=== PATIENT | female | born 1955 | race Caucasian/White ===

== ENCOUNTER 2022-05-13 07:20 | Day surgery (SDC) | payer OTHER ==
[2022-05-11 11:16] LABS: Absolute Lymphocytes (CBC) 1.6 K/uL (0.7-4.9); Hematocrit 44.2 % (36.0-45.0); Lymphocytes % 21.5 % (15.3-44.8); MCV 84.2 fL (80-100); MPV 6.9 fL (7.6-11.3); RBC Red Blood Cell Count 5.25 M/uL (3.86-4.86)
--- NOTE | 2022-05-11 11:28 | RAD REPORT ---
EXAM DESCRIPTION: RAD - Chest Pa And Lat (2 Views) - 05/11/2022 11:11 am CLINICAL HISTORY: Pre op pending cholecystectomy COMPARISON: No comparisons FINDINGS: Lines: None. Lungs: No evidence of edema or pneumonia. Pleural: No significant pleural effusions or pneumothorax. Cardiac: The heart size is within normal limits. Bones: No acute fractures. Other: IMPRESSION: No acute cardiopulmonary disease.
[2022-05-11 11:30] LABS: SARS-CoV-2 Antigen Rapid Res Negative (Negative)
[2022-05-11 11:32] LABS: Potassium 3.9 mmol/L (3.5-5.1)
--- NOTE | 2022-05-12 07:55 | EKG ---
Test Date: 2022-05-11 Test Time: 10:52:09 Honing Machine Operator Tool: CHAIM MEASUREMENT RESULTS: Intervals: Rate: 74 GA: 158 QRSD: 78 QT: 388 QTc: 430 [place]: P: 41 GA: 158 QRS: 15 T: 18 INTERPRETIVE STATEMENTS: Normal sinus rhythm Normal ECG No previous ECG available for comparison Electronically Signed On 05-12-22 07:52:42 CDT by Deon Wiley
[2022-05-13] MEDS ORDERED: Ringers Lactate 1,000 ML IV ONE (07:47)
[2022-05-13] MEDS ORDERED: CEFOXITIN SODIUM 1 GM/VIAL ONE (07:47)
[2022-05-13] MEDS ORDERED: MIDAZOLAM HCL 2 MG/2 ML INJ ONE (08:23)
[2022-05-13] MEDS ORDERED: propofoL 200 MG/20 ML VIAL IV ONE (08:23)
[2022-05-13] MEDS ORDERED: FENTANYL CITR 250 MCG/5 ML ONE (08:23)
[2022-05-13] MEDS ORDERED: ROCURONIUM 50 MG/5 ML VIAL IV ONE (08:23)
[2022-05-13] MEDS ORDERED: GLYCOPYRROLATE 0.2 MG/ML SYR ONE (08:24)
[2022-05-13] MEDS ORDERED: ONDANSETRON 4 MG/2 ML VIAL ONE (08:25)
[2022-05-13] MEDS ORDERED: NEOSTIGMINE 1 MG/ML -10 ML VIAL ONE (08:26)
[2022-05-13] MEDS ORDERED: LIDOCAINE 1% MPF 5 ML VIAL ONE (08:27)
[2022-05-13] MEDS ORDERED: ACETAMINOPHEN 500 MG TAB ONE (08:28)
[2022-05-13] MEDS ORDERED: BUPIVACAINE 0.25% PF 10 ML VIAL ONE (08:46)
[2022-05-13] MEDS ORDERED: EPHEDRINE SULF 50 MG/ML VIAL ONE (09:03)
[2022-05-13] MEDS ORDERED: dexAMETHasone 10 MG/ML VIAL ONE (09:09)
--- NOTE | 2022-05-13 10:17 | P.OP ---
Preoperative diagnosis: Chronic Cholecystitis with Cholelithiasis Postoperative diagnosis: Chronic Cholecystitis with Cholelithiasis Primary procedure: Laparoscopic Cholecystectomy with ICG Cholangiography Anesthesia: GETA + Local Estimated blood loss: < 10cc Specimen: Gallbladder Findings: Cholecystitis, umbilical hernia Complications: None Transferred to: Recovery Room Condition: Good
[2022-05-13 11:36] VITALS: BP 119/65; TEMP 97; O2SAT 99
[2022-05-13] MEDS ORDERED: HYDROCODONE/APAP 5/325 MG TAB ONE (12:24)
--- NOTE | 2022-05-13 21:47 | OP ---
Date of Procedure: 05/13/2022 Surgeon: Rk Perez MD, Preoperative Diagnoses: Chronic cholecystitis and cholelithiasis. Postoperative Diagnoses: Chronic cholecystitis and cholelithiasis. Procedures Performed: Laparoscopic cholecystectomy with ICG cholangiography. Anesthesia: General endotracheal plus local with 0.25% Marcaine. Estimated Blood Loss: Less than 10 cc. Specimen: Gallbladder. Findings: 1.Chronic cholecystitis with significant inflammatory changes. 2.Gallbladder full of stones, unable to be decompressed. 3.Stone impacted in neck of gallbladder. 4.Short cystic duct. 5.Umbilical hernia. 6.Nodular appearance of the liver consistent with possible early hepatitis/cirrhosis. Complications: None. The patient was transferred to recovery room in good condition. Procedure In Detail: After informed was obtained, the patient was brought to the operating room and prepped and draped in the usual sterile fashion. After adequate anesthesia was achieved, the supraum bilical area was anesthetized with 0.25% Marcaine, sharply incised, and 5 mm trocar was placed under direct visualization without any complication. Insufflation was obtained to 15 mmHg at this time. T here was no injury to vital structures upon entry into the abdomen. The patient was noted to have si gnificant intraabdominal adiposity with significant scar tissue anterior to the gallbladder, complete ly encasing the gallbladder and omentum. Three additional trocars were placed; 1 in the epigastrium, 1 in the right upper quadrant, and 1 in the right mid abdomen. All these were 5 mm trocars placed u nder direct visualization without any complication. The umbilical trocar was then upsized to a 12 mm under direct visualization without any complication. The patient was positioned in head up, right-s paul up position. Ratcheted grasper was used to grasp the patient's gallbladder. It was difficult to grasp at this point. A decompression needle was brought in and attempted to suction out the gallbla dder. However, due to the significant stone burden and viscosity of the effluent, it is very difficu lt to decompress the gallbladder and get any significant amount of reduction. As such the gallbladde r remains thick, edematous, and difficult to manage throughout the procedure. The grasper was able t o grasp the fundus of the gallbladder and place it towards the patient's right shoulder. Dissection continued down to remove the omentum and inflammatory rind off the anterior surface of the gallbladde r using a combination of blunt dissection and electrocautery down to expose the fundus of the gallbla dder where a stone was noted to be firmly impacted. Multiple attempts were made to remove the stone out of the neck of the gallbladder, which were unsuccessful. At this point, ICG cholangiography help ed to confirm the anatomy of the cystic common duct junction. The cystic duct was noted to be quite short, however, it could be visualized and a window was created. Two structures were identified ente ring the gallbladder. These were identified as the cystic duct and cystic artery. These were both d oubly clipped with titanium clips. Additional small feeding vessel side branch, off the cystic arter y was noted feeding the posterior portion of the gallbladder. This was also clipped with an addition al clip at this point. These structures were then ligated, after critical view of safety was obtaine d and ICG cholangiography confirmed the anatomy. At this point, the gallbladder was removed from the hepatic fossa without evidence of complication, placed in Endo Catch bag, removed through the umbili vickie trocar, and sent off for pathologic examination. The patient had an umbilical hernia, which was appreciated upon entry into the abdomen. This was somewhat dilated by the trocar placement and as jessica ch I irrigated the abdomen copiously at this point, suctioned out completely dry, and clips were foun d to be in good anatomic position. No hemostatic measures were required. At the end of procedure, n o leakage of bile. The area was copiously irrigated multiple times, suctioned out completely clear. The patient was positioned back in neutral position. Remaining effluent was suctioned out. The umb ilical trocar site was closed using multiple #1 Vicryl sutures in an interrupted fashion using a Monica barrettCharmaine suture passer with good opposition and approximation of the tissues reapproximating the u mbilical hernia as well with a primary closure. At this point, the abdomen was then completely desuf flated under direct visualization without evidence of complication. Remaining trocars were removed. All skin incisions were copiously irrigated and closed with a 4-0 Monocryl fashion. Dermabond was p laced over top. The patient tolerated procedure without evidence of any complication and transferred to PACU in good condition. All counts were correct at the end of the case. TK/MODL Voice ID: [id number] Report ID: [id number]
== END 2022-05-13 13:15 | disposition home or self-care (01) ==
LOC: OR 07:20
PROVIDERS: ATTEND Surgery
PROC: BF13YZZ Fluoroscopy of Gallbladder and Bile Ducts using Other Contrast (ICD-10-PCS; 2022-05-13)
PROC: 0FT44ZZ Resection of Gallbladder, Percutaneous Endoscopic Approach (ICD-10-PCS; principal; 2022-05-13 09:00)
DX: K80.10 Calculus of gallbladder with chronic cholecystitis without obstruction (principal); K42.9 Umbilical hernia without obstruction or gangrene; Z20.822 Contact with and (suspected) exposure to COVID-19
CPT/HCPCS: 93005; 85025; 80048; 36415; 88304; 71046; 87811; 47563; J2704; J2710; J2250; J3010; J1100; J7120; J0694; J2405